=== PATIENT | male | born 1980 ===

== ENCOUNTER → 2024-09-16 | Outpatient (CLI) | payer OTHER ==
[~2024-09-16] VITALS: Ht 170.2 cm; Wt 90.7 kg
== END | disposition home or self-care (01) ==
LOC: Rad HDHVI 08:18
PROVIDERS: ATTEND Internal Medicine Cardiovascular Disease
DX: I49.3 Ventricular premature depolarization (principal); R00.0 Tachycardia, unspecified; I20.9 Angina pectoris, unspecified; I10 Essential (primary) hypertension; E78.00 Pure hypercholesterolemia, unspecified; Z79.899 Other long term (current) drug therapy
CPT/HCPCS: 78452; 93017; 96374; A9500